=== PATIENT | female | born 1960 | race Two or more races ===

== ENCOUNTER 2018-01-28 12:52 | Emergency (ER) | payer SELFPAY ==
[2018-01-28 13:01] VITALS: BMI 38.7
--- NOTE | 2018-01-28 13:12 | DR.GENAD ---
HPI - PCP Primary Care Physician: none - Complaint/Symptoms Chief Complaint:: "I have a history of high blood pressure and i have not insurance so im unaable to go to the [facility] or get my meds filled" - Nurses notes reviewed Nurses Notes Review: Yes - Source History Provided: Patient - Mode of Arrival Mode of Arrival: Ambulatory - Timing Onset of Chief Complaint: 01/20/18 PMH - PMH Past Medical History: Yes Past Medical History: Depression, Hypertension Past Surgical History: No - Family History History of Family Medical Conditions: Yes Family Medical History: Diabetes Mellitus, Cancer, MS, Coronary Artery Disease, Heart Failure, Hypertension - Social History Does patient currently use any type of tobacco product: No Have you used tobacco products in the last 12 months: No Type of Tobacco Use: None Does any household member use tobacco: No Do you use any recreational Drugs:: No Lives With: Family Lives Where: Home - infectious screening In the last 2 months have you had wt loss of >10#?: NO Have you had fever, night sweats or hemotysis?: No Have you traveled outside the country in the last 6 months?: No Isolation: Standard PE - Vital Signs Vitals: Temperature 975 F Pulse Rate [Right Brachial] 67 Pulse Rate 80 Respiratory Rate 18 Blood Pressure [Right Arm] 173/93 Blood Pressure 194/96 O2 Sat by Pulse Oximetry 99 ROR - Labs Reviewed Result Diagrams: 01/28/18 13:24 01/28/18 13:24 Laboratory: WBC 7.2 X10^3/uL (3.6-10.0) 01/28/18 13:24 RBC 4.31 X10^6/uL (3.5-5.4) 01/28/18 13:24 Hgb 13.0 g/dL (12.0-16.0) 01/28/18 13:24 Hct 38.3 % (36.0-47.0) 01/28/18 13:24 MCV 88.8 fL (80.0-100.0) 01/28/18 13:24 MCH 30.1 pg (27.0-34.0) 01/28/18 13:24 MCHC 33.9 g/dL (33.0-35.0) 01/28/18 13:24 RDW 14.8 % (11.6-16.5) 01/28/18 13:24 Plt Count 281 X10^3/uL (150.0-450.0) 01/28/18 13:24 MPV 7.0 fL (7.4-11.0) L 01/28/18 13:24 Neut % (Auto) 62.2 % (42.0-75.0) 01/28/18 13:24 Lymph % (Auto) 23.6 % (21.0-51.0) 01/28/18 13:24 [place] % (Auto) 11.4 % (0.0-13.0) 01/28/18 13:24 Eos % (Auto) 2.3 % (0.9-2.9) 01/28/18 13:24 Baso % (Auto) 0.5 % (0.2-1.0) 01/28/18 13:24 Neut # (Auto) 4.5 x10^3/uL (2.2-4.8) 01/28/18 13:24 Lymph # (Auto) 1.7 X10^3/uL (1.3-2.9) 01/28/18 13:24 [place] # (Auto) 0.8 x10^3/uL (0.3-0.8) 01/28/18 13:24 Eos # (Auto) 0.2 x10^3/uL (0.0-0.2) 01/28/18 13:24 Baso # (Auto) 0.0 X10^3/uL (0.0-0.1) 01/28/18 13:24 Absolute Nucleated RBC 0.0 /100WBC 01/28/18 13:24 Sodium 143 mmol/L (136-145) 01/28/18 13:24 Corrected Sodium 143 mmol/L (136-145) 01/28/18 13:24 Potassium 3.9 mmol/L (3.5-5.1) 01/28/18 13:24 Chloride 108 mmol/L (98-107) H 01/28/18 13:24 Carbon Dioxide 30.1 mmol/L (21-32) 01/28/18 13:24 BUN 17 mg/dL (7-18) 01/28/18 13:24 Creatinine 0.91 mg/dL (0.55-1.02) 01/28/18 13:24 Est GFR (MDRD) Af Amer > 60 (>60) 01/28/18 13:24 Est GFR (MDRD) Non-Af > 60 (>60) 01/28/18 13:24 Glucose 114 mg/dL (65-99) H 01/28/18 13:24 Calcium 8.3 mg/dL (8.5-10.1) L 01/28/18 13:24 Corrected Calcium TNP 01/28/18 13:24 Total Bilirubin 0.50 mg/dL (0.2-1.0) 01/28/18 13:24 AST 27 Units/L (15-37) 01/28/18 13:24 ALT 45 Units/L (12-78) 01/28/18 13:24 Alkaline Phosphatase 86 Units/L (46-116) 01/28/18 13:24 Total Protein 7.4 g/dL (6.4-8.2) 01/28/18 13:24 Albumin 3.5 g/dL (3.4-5.0) 01/28/18 13:24 Globulin 3.9 g/dL (2.5-4.5) 01/28/18 13:24 Albumin/Globulin Ratio 0.9 Ratio (1.1-2.1) L 01/28/18 13:24 - Diagnosis Discharge Problem: Hypertension, Headache - Discharge Plan Condition: Stable Prescriptions: Clonidine HCl [CATAPRES 0.2 MG TAB *] 0.2 mg PO BID #60 tab - Follow ups/Referrals Follow ups/Referrals: [facility],None [Primary Care Provider] - 3 days JIMI TAYLOR [STAFF PHYSICIAN] - 3 days - Instructions Instructions: Hypertension, Pain Without a Known Cause Additional Instructions: RETURN TO ED IF WORSE. BP CHECK DAILY, CHART AND TAKE TO YOU DOCTOR.
[2018-01-28] MEDS ORDERED: CATAPRES TAB 0.1 MG PO ONE ×2 (13:14→14:09)
[2018-01-28] MEDS ORDERED: CATAPRES TAB 0.1 MG ONE ×2 (13:17→14:09)
[2018-01-28 13:30] LABS: BASOPHILS % (AUTO) 0.5 % (0.2-1.0); EOSINOPHILS # (AUTO) 0.2 x10^3/uL (0.0-0.2); EOSINOPHILS % (AUTO) 2.3 % (0.9-2.9); HEMATOCRIT 38.3 % (36.0-47.0); LYMPHOCYTES # (AUTO) 1.7 X10^3/uL (1.3-2.9); LYMPHOCYTES % (AUTO) 23.6 % (21.0-51.0); MEAN CORPUSCULAR HEMOGLOBIN 30.1 pg (27.0-34.0); MEAN CORPUSCULAR HGB CONC 33.9 g/dL (33.0-35.0); MEAN CORPUSCULAR VOLUME 88.8 fL (80.0-100.0); MONOCYTES # (AUTO) 0.8 x10^3/uL (0.3-0.8); MONOCYTES % (AUTO) 11.4 % (0.0-13.0); NEUTROPHILS # (AUTO) 4.5 x10^3/uL (2.2-4.8); NEUTROPHILS % (AUTO) 62.2 % (42.0-75.0); PLATELET COUNT 281 X10^3/uL (150.0-450.0); RED BLOOD COUNT 4.31 X10^6/uL (3.5-5.4); RED CELL DISTRIBUTION WIDTH 14.8 % (11.6-16.5); WHITE BLOOD COUNT 7.2 X10^3/uL (3.6-10.0)
[2018-01-28 13:43] LABS: ALANINE AMINOTRANSFERASE 45 Units/L (12-78); ALBUMIN 3.5 g/dL (3.4-5.0); ALKALINE PHOSPHATASE 86 Units/L (46-116); ASPARTATE AMINO TRANSFERASE 27 Units/L (15-37); BLOOD UREA NITROGEN 17 mg/dL (7-18); CALCIUM 8.3 mg/dL (8.5-10.1); CARBON DIOXIDE 30.1 mmol/L (21-32); CHLORIDE 108 mmol/L (98-107); COR NA(FOR HYPERGLY) 143 mmol/L (136-145); CREATININE 0.91 mg/dL (0.55-1.02); SODIUM 143 mmol/L (136-145); TOTAL PROTEIN 7.4 g/dL (6.4-8.2); eGFR BLACK RACES > 60 (>60); eGFR NON BLACK RACES > 60 (>60)
--- NOTE | 2018-01-28 13:43 | CT ---
CT brain without contrast Indication: Headache Comparison: None available Technique: Multiple axial images of the brain were obtained from the skull base to the vertex without administra tion of IV contrast. Findings: No acute intraparenchymal hemorrhage or mass can be identified. No extra-axial fluid collections are seen. No alteration in the attenuation of the brain parenchyma can be identified to suggest acute o r subacute ischemic change. The ventricular system is symmetric and nondilated. The extracranial st ructures are grossly unremarkable. IMPRESSION: 1. No acute intracranial process is identified. Reported By:
[2018-01-28 13:55] VITALS: BP 173/93
[2018-01-28] MEDS ORDERED: TORADOL 60 MG VIAL ONE (14:39)
[2018-01-28] MEDS ORDERED: TORADOL 60 MG VIAL IM ONE ×2 (14:40)
== END 2018-01-28 14:49 | disposition home or self-care (01) ==
LOC: ER 13:04
DX: R51 Headache (principal); I10 Essential (primary) hypertension
CPT/HCPCS: 36415; 70450; 80053; 85025; 96372; 99282; J1885